=== PATIENT | male | born 1980 ===

== ENCOUNTER 2017-07-15 08:58 | Emergency (ER) | payer SELFPAY ==
[2017-07-15] MEDS ORDERED: Ibuprofen 800 MG TAB ONE (09:31)
== END 2017-07-15 09:44 | disposition home or self-care (01) ==
LOC: NAV ERS 08:58
DX: S39.012A Strain of muscle, fascia and tendon of lower back, initial encounter (principal); X50.1XXA Overexertion from prolonged static or awkward postures, initial encounter
CPT/HCPCS: 99283